=== PATIENT | female | born 1995 | race Caucasian/White ===

== ENCOUNTER 2019-12-23 08:17 | Day surgery (SDC) | payer BC ==
[~2019-12-23 08:17] MED LIST: AMPICILLIN SODIUM 2 GM in NORMAL SALINE 100 ML IV PRN
[2019-12-23] MEDS ORDERED: OXYMETAZOLINE HCL 0.05% NASAL SPRAY 15 ML BOTTLE ONE (09:42)
[2019-12-23] MEDS ORDERED: LIDOCAINE 2% INJ-PF (20 MG/ML) 10 ML AMPUL ONE (09:44)
[2019-12-23] MEDS ORDERED: SUCCINYLCHOLINE CHLORIDE INJ 200 MG/10 ML VIAL ONE (09:45)
[2019-12-23] MEDS ORDERED: FENTANYL CITRATE INJ/PF 100 MCG/2 ML AMPUL ONE (09:45)
[2019-12-23] MEDS ORDERED: PROPOFOL INJ 200 MG/20 ML VIAL IV ONE (09:45)
[2019-12-23] MEDS ORDERED: DEXAMETHASONE SOD PHOS INJ 10 MG/1 ML VIAL ONE (09:45)
[2019-12-23] MEDS ORDERED: MIDAZOLAM 2 MG/2 ML INJ ONE (09:45)
[2019-12-23] MEDS ORDERED: HYDROMORPHONE HCL INJ/PF 2 MG/ML AMPULE ONE (09:46)
--- NOTE | 2019-12-23 10:59 | Operative Report ---
Operative Report-[facility] Operative Report: Date: 23 December 2019 History: 24-year-old female with history of chronic tonsillitis. Presents today for tonsillectomy. Informed consent was obtained from the patient Pre-operative diagnosis: 1. Chronic Tonsillitis Post operative diagnosis: Same as above Procedure: Tonsillectomy Surgeon: Prabhakar Callahan MD, FACS, [facility] Anesthesia: General via Endotrachreal intubation Procedure: After receiving informed consent, the patient was brought to the operating room and placed supine on the operating table. After successful induction and intubation by anesthesia the patient was turned 90 degrees and placed in Trendelenburg. A shoulder roll was placed along with a head drape. A McIvor mouth gag was inserted atraumatically into the oral cavity and opened up. The soft palate was palpated and found to be normal. Red rubber catheters were inserted down each nasal cavity and brought out to elevate the soft palate. Attention was then directed to the tonsils. The right tonsil was grasped with tenaculum and retracted medially. Using Bovie electrocautery the right tonsil was dissected free from its tonsillar fossa . Hemostasis was obtained using suction Bovie electrocautery. A similar procedure was performed on the left side. Both tonsils were removed. The tonsils were 3+. The oral pharynx and the oral cavity were irrigated with copious amounts of normal saline, without evidence of bleeding. An orogastric tube was inserted into the stomach to aspirate gastric contents. The McIvor mouthgag was then released and reopened, the surgical bed was dry without evidence of bleeding. The McIvor mouth gag along with the red catheters were removed from the patient. The patient was then returned back to anesthesia who successfully extubated the patient. Estimated blood loss: 15 mL Fluids: 500 mL The patient was then transported to the Post Anesthesia Care Unit in stable condition with spontaneous respiration. No complication.
[2019-12-26] MEDS ORDERED: HYDROCOD/ACETAMIN 7.5-325 MG/15 ML ORAL SOLN UDCUP PO PRN (09:31)
== END 2019-12-23 11:48 | disposition home or self-care (01) ==
LOC: SC 08:17
PROVIDERS: ATTEND Otolaryngology
DX: J35.1 Hypertrophy of tonsils (principal); J45.909 Unspecified asthma, uncomplicated
CPT/HCPCS: 42826; 87635; 88304 ×2; 00170; J0290; J2250; J3010; J1170; J3490 ×2; J0330; J7050; J2704; J1100; C9803; 170

== ENCOUNTER 2019-12-27 22:37 | Emergency (ER) | payer BC ==
--- NOTE | 2019-12-27 23:07 | ER Document Report ---
ED General - General Chief Complaint: Allergic Reaction Stated Complaint: SHORTNESS OF BREATH, HIVES, VOMITING Primary Care Provider: RAQUEL HINTON [NO LOCAL MD] - Follow up as needed LAKE MIMS MD [ACTIVE STAFF] - Follow up as needed Notes: Patient is a 24-year-old white female with a recent past medical history of tonsillectomy on December 22 who presents to the emergency department the chief complaint of rash, fever and cough. Patient states that the rash began intermittently prior to the surgery on the . She states that was transient in nature and would come and go. She denies any provocative or palliative factors. She states the day of surgery after surgery the rash got worse. She also adds that she was started on hydrocodone acetaminophen liquid and subsequently started vomiting. She called the ENT office and they changed it to oxycodone liquid. Patient states that she is continued to vomit. She reports that she has had fevers at home as well as started to develop a dry cough the day of surgery after surgery. She states she believes she was intubated that day. She admits to a sore throat as she would expect status post tonsillectomy, not unusual. She denies any difficulty swallowing or breathing. No chills or night sweats. She denies any known sick contacts or recent travel. - Related Data Allergies/Adverse Reactions: Latex, Natural Rubber Allergy (Verified 12/23/19 09:12) sulfamethoxazole [From Bactrim] Allergy (Verified 12/17/19 15:23) RED RASH, HIVES trimethoprim [From Bactrim] Allergy (Verified 12/17/19 15:23) RED RASH, HIVES Past Medical History - Social History Smoking Status: Never Smoker Frequency of alcohol use: Occasional Drug Abuse: None Family History: Reviewed & Not Pertinent Patient has homicidal ideation: No - Past Medical History Cardiac Medical History: Denies: Hx Heart Attack, Hx Hypertension Pulmonary Medical History: Reports: Hx Asthma - NO MEDS Neurological Medical History: Denies: Hx Cerebrovascular Accident, Hx Seizures GI Medical History: Denies: Hx Hepatitis, Hx Hiatal Hernia, Hx Ulcer Infectious Medical History: Denies: Hx Hepatitis Past Surgical History: Reports: Hx Tonsillectomy - 12/23/2019. Denies: Hx Hysterectomy, Hx Mastectomy, Hx Open Heart Surgery, Hx Pacemaker Review of Systems - Review of Systems Constitutional: Fever EENT: Throat pain Respiratory: Cough Gastrointestinal: Nausea, Vomiting Skin: Rash -: Yes All other systems reviewed and negative Physical Exam - Vital signs Vitals: Temp 98.1 F 12/27/19 22:42 - General General appearance: Appears well, Alert In distress: None - HEENT Head: Normocephalic, Atraumatic Eyes: Normal Conjunctiva: Normal Extraocular movements intact: Yes Pupils: PERRL Ears: Normal External canal: Normal Tympanic membrane: Normal Nasal: Normal Mouth/Lips: Normal Mucous membranes: Normal Pharynx: Other - Status post tonsillectomy, white film over the tonsillar patches expected status post tonsillectomy. No pharyngeal edema. Uvula midline without edema or erythema. Airway patent. Patient handling secretions well. No sublingual or submental swelling. No trismus. Neck: Normal, Supple. No: Lymphadenopathy - Respiratory Respiratory status: No respiratory distress Chest status: Nontender Breath sounds: Normal Chest palpation: Normal - Cardiovascular Rhythm: Regular Heart sounds: Normal auscultation Murmur: No - Abdominal Inspection: Normal Distension: No distension Bowel sounds: Normal Tenderness: Nontender Organomegaly: No organomegaly - Extremities General upper extremity: Normal inspection, Nontender, Normal color, Normal ROM, Normal temperature General lower extremity: Normal inspection, Nontender, Normal color, Normal ROM, Normal temperature, Normal weight bearing. No: Kaylin's sign - Neurological Neuro grossly intact: Yes Cognition: Normal Orientation: AAOx4 [place] Coma Scale Eye Opening: Spontaneous [place] Coma Scale Verbal: Oriented [place] Coma Scale Motor: Obeys Commands [place] Coma Scale Total: 15 Speech: Normal - Psychological Associated symptoms: Normal affect, Normal mood - Skin Skin Color: Other - Diffuse macular erythematous lacy appearing rash, seems to be most prevalent in the bilateral cheeks Course - Re-evaluation Re-evalutation: 12/28/19 01:24 Patient with a mild leukocytosis. Chest x-ray showing a right upper lobe pneumonia. Should be treated with Levaquin. She will discontinue Zofran so that there is no interaction between Levaquin and Zofran. There appears to be no infection or complication with the tonsillectomy site. Her rash has improved significantly. She is well-appearing. She is in no acute distress and nontoxic. Strep and flu were negative. COVID-19 test pending. She will self isolate at home until test results return. Counseled her at length regarding the importance of outpatient follow-up and advised she return here or any ER immediately with any new, persistent worsening symptoms. She verbalized unders tood and agreed. - Vital Signs Vital signs: Temp Pulse Resp BP Pulse Ox 98.1 F 12/27/19 22:42 - Laboratory Result Diagrams: 12/27/19 22:53 12/27/19 22:53 Laboratory results interpreted by me: 12/27/19 12/27/19 12/27/19 22:53 22:53 23:05 WBC 12.2 H Plt Count 491 H Absolute Neuts (auto) 9.4 H Sodium 135.4 L Chloride 97 L Glucose 120 H Urine Ketones 20 H Leukocyte Esterase Rfl TRACE H Discharge - Discharge Clinical Impression: Pneumonia Qualifiers: Pneumonia type: due to unspecified organism Laterality: right Lung location: upper lobe of lung Qualified Code(s): J18.9 - Pneumonia, unspecified organism Condition: Stable Disposition: HOME, SELF-CARE Instructions: Pneumonia ([facility]) Additional Instructions: Follow-up with your regular doctor in 2 to 3 days for reevaluation. Return here or any ER immediately with any new, persistent or worsening symptoms. Prescriptions: Levofloxacin [Levaquin 750 mg Tablet] 750 mg PO DAILY #7 tablet Referrals: RAQUEL HINTON [NO LOCAL MD] - Follow up as needed LAKE MIMS MD [ACTIVE STAFF] - Follow up as needed
[2019-12-27 23:15] LABS: ABSOLUTE EOSINOPHILS # (AUTO) 0.1 10^3/uL (0.0-0.6); ABSOLUTE LYMPHOCYTES (AUTO) 1.7 10^3/uL (0.5-4.7); ABSOLUTE NEUT (AUTO) 9.4 10^3/uL (1.7-8.2); BASOPHILS % (AUTO) 0.1 % (0-2); EOSINOPHILS % (AUTO) 0.4 % (0-6); HEMOGLOBIN 14.7 g/dL (12.0-15.5); MEAN CORPUSCULAR HEMOGLOBIN 31.7 pg (27.0-33.4); MEAN CORPUSCULAR HGB CONC 35.1 g/dL (32.0-36.0); MEAN CORPUSCULAR VOLUME 90 fl (80-97); MONOCYTES % (AUTO) 8.1 % (3-13); PLATELET COUNT 491 10^3/uL (150-450); RED BLOOD COUNT 4.65 10^6/uL (3.72-5.28); RED CELL DISTRIBUTION WIDTH 12.1 % (11.5-14.0); SEGMENTED NEUTROPHILS % (AUTO) 77.4 % (42-78); TOTAL CELLS COUNTED % (AUTO) 100 %; WHITE BLOOD COUNT 12.2 10^3/uL (4.0-10.5)
[2019-12-27 23:33] LABS: ALBUMIN 4.1 g/dL (3.5-5.0); ALKALINE PHOSPHATASE 87 U/L (38-126); ANION GAP 10 (5-19); ASPARTATE AMINO TRANSFERASE 23 U/L (14-36); BILIRUBIN,DIRECT 0.1 mg/dL (0.0-0.4); BILIRUBIN,TOTAL 0.6 mg/dL (0.2-1.3); BLOOD UREA NITROGEN 7 mg/dL (7-20); CALCIUM 9.2 mg/dL (8.4-10.2); CARBON DIOXIDE 28 mmol/L (22-30); CHLORIDE 97 mmol/L (98-107); GLUCOSE 120 mg/dL (75-110); POTASSIUM 3.9 mmol/L (3.6-5.0); TOTAL PROTEIN 8.2 g/dL (6.3-8.2)
--- NOTE | 2019-12-27 23:47 | RADIOLOGY REPORT (SQ) ---
EXAM DESCRIPTION: XR CHEST 1 VIEW COMPLETED DATE/TME: 12/27/2019 23:03 CLINICAL HISTORY: 24 years, Female, cough/fever Comparison: None FINDINGS: Ill-defined opacity in the right upper lobe. The lungs are otherwise clear. There are no pleural abnormalities. Cardiac silhouette is normal in size. IMPRESSION: Ill-defined patchy opacities in the right upper lobe may represent atelectasis or developing infiltrate. copyright 2010 [employer]- All Rights Reserved
[2019-12-27 23:54] LABS: APPEARANCE,URINE CLEAR; BILIRUBIN,URINE NEGATIVE (NEGATIVE); COLOR,URINE YELLOW; GLUCOSE, URINE NEGATIVE (NEGATIVE); KETONES,URINE 20 mg/dL (NEGATIVE); PROTEIN,URINE NEGATIVE (NEGATIVE); URINE SPECIFIC GRAVITY 1.005; UROBILINOGEN,URINE NEGATIVE mg/dL (<2.0)
[2019-12-28 00:01] LABS: A TYPE INFLUENZA AG NEGATIVE (NEGATIVE); B INFLUENZA AG NEGATIVE (NEGATIVE)
[2019-12-28] MEDS ORDERED: DEXAMETHASONE SOD PHOS INJ 10 MG/1 ML VIAL IV ONE (00:21)
[2019-12-28] MEDS ORDERED: CEFTRIAXONE 1 GM/D5W RTU 1 GM/50 ML RTUPB IV ONE (01:00)
[2019-12-28 01:50] VITALS: BP 105/65
== END 2019-12-28 01:50 | disposition home or self-care (01) ==
LOC: ER 22:37
DX: J18.9 Pneumonia, unspecified organism (principal); T78.40XA Allergy, unspecified, initial encounter; L50.9 Urticaria, unspecified; R11.10 Vomiting, unspecified; R21 Rash and other nonspecific skin eruption; R50.9 Fever, unspecified; R05 Cough; J45.909 Unspecified asthma, uncomplicated; Z88.2 Allergy status to sulfonamides; Z88.8 Allergy status to other drugs, medicaments and biological substances; Z20.828 Contact with and (suspected) exposure to other viral communicable diseases
CPT/HCPCS: 99285; 96372; 96365; 36415; 87070; 87086; 87880; 85025; 87635; 87077; 80053; 81001; 87804; 71045; J0696; J1100; C9803

== ENCOUNTER 2019-12-28 13:37 | Emergency (ER) | payer BC ==
[2019-12-28] MEDS ORDERED: FAMOTIDINE INJ/PF 20 MG/2 ML SDV IV ONE (13:55)
[2019-12-28] MEDS ORDERED: METHYLPREDNISOLONE INJ 125 MG/2 ML SDV IV ONE (13:55)
[2019-12-28] MEDS ORDERED: DIPHENHYDRAMINE HCL 50 MG/ML VIAL IV ONE (13:55)
--- NOTE | 2019-12-28 14:00 | ER Document Report ---
ED Allergic Reaction - General Stated Complaint: FOLLOWUP-RASH Time Seen by Provider: 12/28/19 13:42 Notes: CHIEF COMPLAINT: Urticaria HPI: History is obtained from the patient and the medical record that was reviewed. A 24-year-old female recent history of tonsillectomy who possibly had allergic reaction to codeine developed urticaria and hives yesterday was seen in the emergency department. Patient states she was given steroids while in the emergency department which did improve the rash. Patient states that she was also started on Levaquin because she was noted to have a pneumonia. Patient has been taking Benadryl at home but was not discharged with steroids per the patient. The rash reoccurred today and did not go away with the Benadryl so she returns for reevaluation. No shortness of breath. ROS: See HPI - all other systems were reviewed and are otherwise negative Constitutional: no fever Eyes: no drainage, no blurred vision ENT: no runny nose, + sore throat Cardiovascular: no chest pain Resp: no SOB, no cough GI: no vomiting, no diarrhea, no abdominal pain : no dysuria Integumentary: + rash Allergy: + hives Musculoskeletal: no extremity pain or swelling Neurological: no numbness/tingling, no weakness MEDICATIONS: I agree with the patient medications as charted by the RN. ALLERGIES: I agree with the allergies as charted by the RN. PAST MEDICAL HISTORY/PAST SURGICAL HISTORY: Reviewed and agree as charted by RN. SOCIAL HISTORY: Reviewed and agree as charted by RN. FAMILY HISTORY: No significant familial comorbid conditions directly related to patient complaint EXAM: Reviewed vital signs as charted by RN. CONSTITUTIONAL: Alert and oriented and responds appropriately to questions. Well-appearing; well-nourished HEAD: Normocephalic; atraumatic EYES: PERRL; Conjunctivae clear, sclerae non-icteric ENT: normal nose; no rhinorrhea; moist mucous membranes; pharynx without lesions noted, no uvula edema or deviation, good granulation bilateral tonsillar pillars without visible bleeding or edema, phonation normal NECK: Supple without meningismus; non-tender; no cervical lymphadenopathy, no masses CARD: RRR; no murmurs, no clicks, no rubs, no gallops; symmetric distal pulses RESP: Normal chest excursion without splinting or tachypnea; breath sounds clear and equal bilaterally; no wheezes, no rhonchi, no rales, pulse oximetry 98% on room air not hypoxic ABD/GI: Normal bowel sounds; non-distended; soft, non-tender, no rebound, no guarding; no palpable organomegaly or masses. BACK: The back appears normal and is non-tender to palpation, there is no CVA tenderness EXT: Normal ROM in all joints; non-tender to palpation; no cyanosis, no effusions, no edema SKIN: Normal color for age and race; warm; dry; good turgor; generalized urticaria are noted trunk abdomen upper and lower extremities as well as face NEURO: Moves all extremities equally; Motor and sensory function intact PSYCH: The patient's mood and manner are appropriate. Grooming and personal hygiene are appropriate. MDM: 24-year-old female with generalized urticaria. Will give steroids and antihistamines here. I spoke with the patient and her mother. Patient is taking Benadryl at home likely needs to increase her dosing slightly but also take an H2 hero and steroids. Given the recent tonsillectomy will change patient's medications to liquid form. She feels she will be able to tolerate the Pepcid. - Related Data Allergies/Adverse Reactions: Latex, Natural Rubber Allergy (Verified 12/23/19 09:12) sulfamethoxazole [From Bactrim] Allergy (Verified 12/17/19 15:23) RED RASH, HIVES trimethoprim [From Bactrim] Allergy (Verified 12/17/19 15:23) RED RASH, HIVES Past Medical History - Social History Smoking Status: Unknown if Ever Smoked Family History: Reviewed & Not Pertinent - Past Medical History Cardiac Medical History: Denies: Hx Heart Attack, Hx Hypertension Pulmonary Medical History: Reports: Hx Asthma - NO MEDS Neurological Medical History: Denies: Hx Cerebrovascular Accident, Hx Seizures GI Medical History: Denies: Hx Hepatitis, Hx Hiatal Hernia, Hx Ulcer Infectious Medical History: Denies: Hx Hepatitis Past Surgical History: Reports: Hx Tonsillectomy - 12/23/2019. Denies: Hx Hysterectomy, Hx Mastectomy, Hx Open Heart Surgery, Hx Pacemaker Physical Exam - Vital signs Vitals: Temp 98.2 F 12/28/19 13:58 Course - Re-evaluation Re-evalutation: 12/28/19 15:41 Patient rash is essentially resolved at this time. Lung sounds are clear to auscultation. Will discharge home to continue on steroids, antihistamines, follow-up PCP - Vital Signs Vital signs: Temp Pulse Resp BP Pulse Ox 98.2 F 94 16 119/85 99 12/28/19 13:58 12/28/19 14:02 12/28/19 14:02 12/28/19 14:02 12/28/19 14:02 Discharge - Discharge Clinical Impression: Acute urticaria Condition: Stable Disposition: HOME, SELF-CARE Instructions: Acute Allergic Reaction ([facility]) Additional Instructions: Continue to take the Levaquin for the pneumonia as previously prescribed. Take the prednisolone as prescribed, this is the steroid that will help with the allergic reaction. It oftentimes takes several days for the medication that caused your reaction to completely be removed from your system. Make sure you are taking Benadryl 50 mg total every 6-8 hours. Make sure you are taking the Pepcid as prescribed. Follow-up with your primary care provider for reevalu ation of symptoms return if your condition worsens Prescriptions: Famotidine [Pepcid 20 mg Tablet] 20 mg PO BID #14 tablet Prednisone 40 mg PO DAILY 5 Days #200 ml
[2019-12-28 16:07] VITALS: BP 112/78
== END 2019-12-28 16:04 | disposition home or self-care (01) ==
LOC: ER 13:37
DX: L50.9 Urticaria, unspecified (principal); J18.9 Pneumonia, unspecified organism; J45.909 Unspecified asthma, uncomplicated; Z97.5 Presence of (intrauterine) contraceptive device; Z90.89 Acquired absence of other organs; Z91.041 Radiographic dye allergy status; Z88.1 Allergy status to other antibiotic agents
CPT/HCPCS: 99283; 96374; 96375; J1200; J2930; S0028